=== PATIENT | male | born 1955 | race Caucasian/White ===

== ENCOUNTER 2022-07-06 12:27 | Inpatient (IN) | payer MEDICARE, MEDICAID ==
[~2022-07-06] VITALS: Ht 185.4 cm; Wt 80.7 kg
[2022-07-06] MEDS ORDERED: APIX5TAB PO (13:52)
[2022-07-06] MEDS ORDERED: SACU1TAB7 PO (13:52)
[2022-07-06] MEDS ORDERED: DAPA10TA PO (13:52)
[2022-07-06] MEDS ORDERED: FURO-152 PO (13:55)
[2022-07-06] MEDS ORDERED: METO-385 PO (13:55)
[2022-07-06] MEDS ORDERED: ROSU20TA2 PO (13:55)
[2022-07-06] MEDS ORDERED: ASPI-1406 PO (13:55)
[2022-07-06] MEDS ORDERED: CEPH500C2 PO (13:57)
[2022-07-06] MEDS ORDERED: INSNOV SUBCUT (13:57)
[2022-07-06] MEDS ORDERED: INSU100I38 SQ (14:00)
[2022-07-06] MEDS ORDERED: LIDOCAINE HCL 1% 20ML VIAL (Pyxis) INJ ONE (14:11)
[2022-07-06] MEDS ORDERED: IODIXANOL 320MG/ML 100 ML BOTTLE IV ONE (14:11)
[2022-07-06] MEDS ORDERED: FENTANYL CITRATE/PF 50MCG/ML 2ML VIAL ONE (14:12)
[2022-07-06] MEDS ORDERED: MIDAZOLAM HCL 2 MG/2 ML VIAL ONE (14:12)
[2022-07-06] MEDS ORDERED: HEPARIN 1000 UNITS/ML 10ML ONE (14:12)
[2022-07-06] MEDS ORDERED: ASPIRIN 325MG TABLET ONE (16:04)
[2022-07-06] MEDS ORDERED: DEXTROSE 50% WATER 50ML SYRINGE IV PRN (16:30)
[2022-07-06] MEDS ORDERED: ONDANSETRON HCL 4MG/2ML INJ IV PRN (16:30)
[2022-07-06] MEDS ORDERED: TRIAMTERENE/HYDROCHLOROTHIAZID 75/50MG TABLET PO SCH (16:30)
[2022-07-06] MEDS ORDERED: ATROPINE SULFATE 1MG/10ML SYR IV PRN (16:30)
[2022-07-06] MEDS: BLOOD SUGAR DIAGNOSTIC STRIP TEST SCH ×2 (16:50→21:00)
[2022-07-06] MEDS: INSULIN LISPRO 100 UNITS/ML SUBCUT SCH ×2 (17:20→22:20)
[2022-07-06] MEDS: ACETAMINOPHEN 325MG TABLET PO PRN (17:52)
[2022-07-06] MEDS: TRIAMTERENE/HCTZ 37.5/25MG TABLET PO SCH (18:30)
[2022-07-06] MEDS ORDERED: TRIAMTERENE/HCTZ 37.5/25MG TABLET PO SCH (18:30)
[2022-07-06 18:33] VITALS: BP 133/68
[2022-07-06 18:43] VITALS: BP 133/68
[2022-07-06 20:00] VITALS: BP 117/57
[2022-07-06] MEDS ORDERED: ATORVASTATIN CALCIUM 20MG TABLET PO SCH (21:00)
[2022-07-06] MEDS: AMLODIPINE 5MG TABLET PO SCH (21:00)
[2022-07-06] MEDS: METOPROLOL TARTRATE 50MG TABLET PO SCH (21:00)
[2022-07-07] VITALS: BP 117/56
[2022-07-07] MEDS: ACETAMINOPHEN 325MG TABLET PO PRN (03:01)
[2022-07-07 04:00] VITALS: BP 130/61
[2022-07-07 06:17] LABS: BASOPHILS % 0.3 % (0.0-2.0); EOSINOPHILS % 1.1 % (0.0-5.0); HEMATOCRIT. 40.4 % (42.0-52.0); HEMOGLOBIN. 13.8 g/dL (14.0-18.0); LYMPHOCYTES % 31.5 % (20.0-50.0); MEAN CORPUSCULAR HEMOGLOBIN 30.9 pg (28.0-32.0); MEAN CORPUSCULAR VOLUME 90.1 fL (80.0-94.0); MEAN PLATELET VOLUME 8.1 fl (7.4-10.4); MONOCYTES % 9.2 % (2.0-8.0); NEUTROPHILS % 57.9 % (40.0-76.0); PLATELET 285 x1000/uL (130-400); RED BLOOD CELL COUNT 4.48 mill/uL (4.7-6.1); RED CELL DISTRIBUTION WIDTH 14.5 % (11.6-14.6)
[2022-07-07] MEDS: BLOOD SUGAR DIAGNOSTIC STRIP TEST SCH (07:02)
[2022-07-07 07:05] LABS: CHLORIDE 108 mEq/L (98-107)
[2022-07-07] MEDS: INSULIN LISPRO 100 UNITS/ML SUBCUT SCH (07:20)
[2022-07-07 08:00] VITALS: BP 132/66
[2022-07-07] MEDS ORDERED: FUROSEMIDE 40MG/4ML VIAL IVP SCH (09:00)
[2022-07-07] MEDS ORDERED: APIXABAN 5 MG TABLET PO SCH (09:00)
[2022-07-07] MEDS ORDERED: ASPIRIN 325MG TABLET PO SCH (09:00)
[2022-07-07] MEDS: METOPROLOL TARTRATE 50MG TABLET PO SCH (09:31)
[2022-07-07] MEDS: AMLODIPINE 5MG TABLET PO SCH (09:32)
[2022-07-07] MEDS: TRIAMTERENE/HCTZ 37.5/25MG TABLET PO SCH (09:32)
[2022-07-07 10:31] VITALS: BP 130/61
== END 2022-07-07 11:40 | disposition home or self-care (01) | DRG 253 ==
LOC: CCL 12:27 → 3WST 16:39
PROVIDERS: ADMIT Specialist; ATTEND Specialist
PROC: 047T3ZZ Dilation of Right Peroneal Artery, Percutaneous Approach (ICD-10-PCS; principal; 2022-07-06)
PROC: 047R3ZZ Dilation of Right Posterior Tibial Artery, Percutaneous Approach (ICD-10-PCS; 2022-07-06)
PROC: B41F1ZZ Fluoroscopy of Right Lower Extremity Arteries using Low Osmolar Contrast (ICD-10-PCS; 2022-07-06)
DX: E11.51 Type 2 diabetes mellitus with diabetic peripheral angiopathy without gangrene (principal); I42.9 Cardiomyopathy, unspecified; E11.621 Type 2 diabetes mellitus with foot ulcer; I48.0 Paroxysmal atrial fibrillation; I11.0 Hypertensive heart disease with heart failure; I50.9 Heart failure, unspecified; I25.10 Atherosclerotic heart disease of native coronary artery without angina pectoris; E78.5 Hyperlipidemia, unspecified; Z79.01 Long term (current) use of anticoagulants; Z79.4 Long term (current) use of insulin; Z79.82 Long term (current) use of aspirin; Z79.84 Long term (current) use of oral hypoglycemic drugs; Z79.899 Other long term (current) drug therapy
CPT/HCPCS: 36415; 37228; 37232; 75710; 80048; 82962; 83036; 83735; 85025; 85347; C1725; C1726; C1769; C1887; C1893; C1894; J0461; J1644; J1815; J1940; J2250; J3010; J3490; Q9967

== ENCOUNTER → 2023-06-18 | Outpatient (CLI) | payer MEDICARE, MEDICAID ==
[~2023-06-18] MED LIST: APIX5TAB PO; ASPI-1406 PO; CEPH500C2 PO; DAPA10TA PO; FURO-152 PO; INSNOV SUBCUT; INSU100I53 SQ; METO-385 PO; ROSU20TA2 PO; SACU1TAB7 PO
== END | disposition home or self-care (01) ==
LOC: RAD 12:14
PROVIDERS: ATTEND Specialist
DX: Z01.818 Encounter for other preprocedural examination (principal); R06.02 Shortness of breath
CPT/HCPCS: 71046